=== PATIENT | female | born 1970 | race Two or more races ===

== ENCOUNTER 2021-03-04 09:38 | Emergency (ER) | payer MEDICAID, OTHER ==
[~2021-03-04] VITALS: Ht 165.1 cm; Wt 56.7 kg
[2021-03-04] MEDS ORDERED: HYDROcodone-ACET 5/325MG TAB PO ONE (10:45)
[2021-03-04 10:53] VITALS: BP 113/86
== END 2021-03-04 11:41 | disposition home or self-care (01) ==
LOC: ER 09:38
DX: S42.002A Fracture of unspecified part of left clavicle, initial encounter for closed fracture (principal); S22.42XA Multiple fractures of ribs, left side, initial encounter for closed fracture; V86.56XA Driver of dirt bike or motor/cross bike injured in nontraffic accident, initial encounter; Y93.55 Activity, bike riding; Y92.488 Other paved roadways as the place of occurrence of the external cause; Y99.8 Other external cause status
CPT/HCPCS: 71101; 73000